=== PATIENT | female | born 1990 ===

== ENCOUNTER 2023-05-30 08:45 | Inpatient (IN) | payer OTHER ==
[~2023-05-30] VITALS: Ht 153.2 cm; Wt 93.0 kg
== END 2023-06-08 12:28 | disposition home or self-care (01) | DRG 750 ==
LOC: OB/GYN 06-05 07:00 → EDBD 06-05 08:45 → O/R 06-05 11:13 → OB/GYN 06-06 00:34 → O/R 06-06 00:37 → OB/GYN 06-06 01:02
PROVIDERS: ADMIT Obstetrics & Gynecology; ATTEND Obstetrics & Gynecology
PROC: 0DNW0ZZ Release Peritoneum, Open Approach (ICD-10-PCS; principal; 2023-06-05 07:00)
DX: N73.6 Female pelvic peritoneal adhesions (postinfective) (principal); Z20.822 Contact with and (suspected) exposure to COVID-19